=== PATIENT | male | born 1960 | race Caucasian/White ===

== ENCOUNTER 2020-08-15 12:48 | Outpatient (RCR) | payer BC, MEDICARE, SELFPAY | END 2020-08-29 23:59 | disposition home or self-care (01) | LOC: GPT 12:48 | PROVIDERS: Family Provider Family Medicine; Visit Provider Family Medicine | DX: G72.81 Critical illness myopathy (principal) | CPT/HCPCS: 97110; 97116; 97161; 97530 ==

== ENCOUNTER → 2020-12-25 14:15 | Outpatient (BNVA) | payer BC, MEDICARE, SELFPAY | PROVIDERS: Family Provider Family Medicine; Visit Provider Nurse Practitioner Family | DX: R60.9 Edema, unspecified (principal) | CPT/HCPCS: 80053 ==

== ENCOUNTER → 2020-12-31 11:34 | Outpatient (BNVA) | payer BC, MEDICARE, SELFPAY | PROVIDERS: Family Provider Family Medicine; Visit Provider Nurse Practitioner Family | DX: I25.10 Atherosclerotic heart disease of native coronary artery without angina pectoris (principal); Z79.899 Other long term (current) drug therapy; R60.9 Edema, unspecified; Z95.1 Presence of aortocoronary bypass graft; Z68.30 Body mass index [BMI] 30.0-30.9, adult | CPT/HCPCS: 80048; 80061; 84443 ==

== ENCOUNTER → 2021-04-28 15:29 | Outpatient (BNVA) | payer BC, MEDICARE, SELFPAY | PROVIDERS: Family Provider Family Medicine; Visit Provider Nurse Practitioner Family | DX: I50.9 Heart failure, unspecified (principal) | CPT/HCPCS: 80048 ==

== ENCOUNTER 2023-08-09 09:32 | Outpatient (CLI) | payer MEDICARE, MEDICAID, SELFPAY ==
--- NOTE | 2023-08-09 09:47 | FL_ITS ---
WS: [id number] Exam: FL barium swallow [id number] Date/Time of Exam: 08/09/2023 10:03 AM Reason For Exam: [email or web address] Fluoroscopy time: Oropharyngeal phase of swallowing was normal. There was no sign of esophageal stricture or mass. Esop hageal motility is normal. 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 This does not cause significant luminal narro wing. No hiatal hernia or gastroesophageal reflux observed. The esophagus is not displaced. IMPRESSION: 1. No intrinsic esophageal mass or stricture identified. 2. Minimal extrinsic compression along the posterior cervical esophagus secondary to anterior osteoph ytes of C5-C7. This does not cause significant luminal compromise. Minutes # of spot films:
== END 2023-08-09 09:33 | disposition home or self-care (01) ==
LOC: RAD 09:35
PROVIDERS: Family Provider Family Medicine; PCP Nurse Practitioner; Visit Provider Specialist
DX: R13.10 Dysphagia, unspecified (principal)
CPT/HCPCS: 74220

== ENCOUNTER 2023-08-11 10:19 | Outpatient (CLI) | payer MEDICARE, MEDICAID, SELFPAY ==
--- NOTE | 2023-08-11 10:25 | FL_ITS ---
WS: [id number] Exam: FL barium swallow modifd [id number] Date/Time of Exam: 08/11/2023 10:58 AM Reason For Exam: Other dysphagia Fluoroscopy time: 1min [id number] minutes # of spot films: Modified barium swallow test was performed in conjunction with the speech therapy service. The patient tolerated all consistencies of barium mixture foodstuffs without penetration or aspiratio n. Oropharyngeal phase of swallowing was normal. The patient swallowed a barium tablet without compli cation. IMPRESSION: 1. Unremarkable modified barium swallow test. A separate report and recommendations will follow from the speech therapy service.
== END 2023-08-11 10:20 | disposition home or self-care (01) ==
LOC: RAD 10:19
PROVIDERS: Family Provider Family Medicine; PCP Nurse Practitioner; Visit Provider Specialist
DX: R13.10 Dysphagia, unspecified (principal)
CPT/HCPCS: 74230; 92611

== ENCOUNTER 2025-08-19 20:03 | Outpatient (CLI) | payer OTHER, MEDICAID, SELFPAY | END 2025-08-19 20:04 | disposition home or self-care (01) | LOC: SLEEP 20:05 | PROVIDERS: Family Provider Family Medicine; PCP Nurse Practitioner; Referring Provider Nurse Practitioner; Visit Provider Internal Medicine Pulmonary Disease | DX: G47.33 Obstructive sleep apnea (adult) (pediatric) (principal) | CPT/HCPCS: 95811 ==